=== PATIENT | female | born 1990 | race Caucasian/White ===

== ENCOUNTER → 2016-07-15 | Outpatient (REF) | payer BC | LOC: M LAB REF 16:53 | PROVIDERS: ATTEND Physician Assistant Medical | DX: R87.610 Atypical squamous cells of undetermined significance on cytologic smear of cervix (ASC-US) (principal) ==

== ENCOUNTER 2016-12-26 09:50 | Emergency (ER) | payer BC ==
[~2016-12-26] VITALS: Ht 160 cm; Wt 54.6 kg
[2016-12-26 09:51] VITALS: BP 108/70
[2016-12-26] MEDS ORDERED: BCP (09:58)
[2016-12-26] MEDS ORDERED: FLUORESCEIN OPHTH 1 MG STRIP OD ONE (10:15)
[2016-12-26] MEDS ORDERED: TETRACAINE 0.5% OPHTH SOLN 4ML OD ONE (10:15)
[2016-12-26] MEDS ORDERED: GENT3OPD OD (10:38)
[2016-12-26] MEDS ORDERED: GENTAMICIN 0.3% OPHTH SOL 5 ML BTL OD ONE (10:45)
== END 2016-12-26 10:46 | disposition home or self-care (01) ==
LOC: M ED 09:50
DX: S05.01XA Injury of conjunctiva and corneal abrasion without foreign body, right eye, initial encounter (principal); X58.XXXA Exposure to other specified factors, initial encounter; Y92.099 Unspecified place in other non-institutional residence as the place of occurrence of the external cause; Y93.9 Activity, unspecified; Y99.9 Unspecified external cause status; Z79.3 Long term (current) use of hormonal contraceptives; Z88.0 Allergy status to penicillin; Z88.8 Allergy status to other drugs, medicaments and biological substances

== ENCOUNTER 2017-03-06 01:22 | Emergency (ER) | payer BC ==
[~2017-03-06] VITALS: Ht 162.6 cm; Wt 55.0 kg
[~2017-03-06 01:22] MED LIST: BCP; GENT3OPD OD
[2017-03-06 01:41] VITALS: BP 127/71
[2017-03-06] MEDS ORDERED: IBUP80TA PO (01:46)
[2017-03-06] MEDS ORDERED: ACET30TAB PO (01:46)
== END 2017-03-06 03:43 | disposition left against medical advice (07) ==
LOC: M ED 01:22
DX: K08.89 Other specified disorders of teeth and supporting structures (principal); Z53.21 Procedure and treatment not carried out due to patient leaving prior to being seen by health care provider

== ENCOUNTER → 2017-12-07 | Outpatient (REF) | payer BC ==
[2017-12-09 14:12] LABS: HPV HYBRID CAPTURE II Negative (Negative)
== END ==
LOC: M LAB REF 17:27
DX: Z01.419 Encounter for gynecological examination (general) (routine) without abnormal findings (principal)
CPT/HCPCS: G0123

== ENCOUNTER → 2019-02-23 | Outpatient (REF) | payer OTHER ==
[~2019-02-23] MED LIST changes: +ACET-716 PO; +GENT0.3S36 OD; -GENT3OPD OD; +IBUP80TA PO; +PREN29TA4 PO
[2019-02-23 16:48] LABS: HEMOGLOBIN 13.4 g/dl (12.0-15.5); MEAN CORPUSCULAR HEMOGLOBIN 29.8 pg (27.0-33.0); MEAN CORPUSCULAR HGB CONC 33.5 g/dl (32.0-36.5); MEAN CORPUSCULAR VOLUME 89.1 fl (80.0-96.0); PLATELET COUNT, AUTOMATED 388 10^3/uL (150-450); RED BLOOD COUNT 4.49 10^6/uL (4.00-5.40); WHITE BLOOD COUNT 12.3 10^3/uL (4.0-10.0)
[2019-02-23 19:52] LABS: HCG, SERUM QUANTITATIVE 90663 MIU/ML; RUBELLA IgG QUALITATIVE IMMUNE (IMMUNE)
[2019-02-25 11:42] LABS: HEPATITIS C VIRUS ABY INDEX < 0.0 INDEX (<0.8); HIV 1&2 SCREEN CENTAUR NEGATIVE (NEGATIVE)
== END ==
LOC: M LAB REF 16:29
PROVIDERS: ATTEND Nurse Practitioner Women's Health
DX: Z32.01 Encounter for pregnancy test, result positive (principal)

== ENCOUNTER 2019-04-15 12:46 | Emergency (ER) | payer OTHER ==
[~2019-04-15] VITALS: Ht 165.1 cm; Wt 68.2 kg
[~2019-04-15 12:46] MED LIST changes: -PREN29TA4 PO
[2019-04-15] MEDS ORDERED: PREN29TA4 PO (12:55)
[2019-04-15] MEDS ORDERED: NS 1,000 ML IV ONE (13:00)
[2019-04-15 13:28] LABS: BASO % 0.2 % (0.0-1.0); EOS # 0.1 10^3/uL (0.0-0.5); EOS % 0.9 % (0.0-3.0); HEMATOCRIT 36.5 % (36.0-47.0); HEMOGLOBIN 11.9 g/dl (12.0-15.5); LYMPH # 1.5 10^3/uL (1.5-5.0); LYMPH % 10.3 % (24.0-44.0); MEAN CORPUSCULAR HEMOGLOBIN 29.7 pg (27.0-33.0); MEAN CORPUSCULAR HGB CONC 32.6 g/dl (32.0-36.5); MONO # 0.9 10^3/uL (0.0-0.8); MONO % 5.7 % (0.0-5.0); NEUTROPHILS # 12.2 10^3/uL (1.5-8.5); NEUTROPHILS % 81.8 % (36.0-66.0); PLATELET COUNT, AUTOMATED 414 10^3/uL (150-450); RED BLOOD COUNT 4.01 10^6/uL (4.00-5.40)
[2019-04-15 13:52] LABS: HCG, SERUM QUALITATIVE POSITIVE (NEGATIVE)
[2019-04-15 13:54] LABS: BLOOD UREA NITROGEN 10 MG/DL (7-18); CALCIUM LEVEL 9.4 MG/DL (8.5-10.1); CARBON DIOXIDE LEVEL 23 MEQ/L (21-32); CHLORIDE LEVEL 106 MEQ/L (98-107); CREATININE FOR GFR 0.55 MG/DL (0.55-1.30); GLOMERULAR FILTRATION RATE > 60.0 (>60); GLUCOSE, FASTING 85 MG/DL (70-100); SODIUM LEVEL 137 MEQ/L (136-145); THYROID STIMULATING HORMONE 0.517 uIU/ML (0.358-3.740)
[2019-04-15 17:21] VITALS: BP 113/56
--- NOTE | 2019-04-15 21:30 | ECGEPIP ---
[facility] - ED Test Date: 2019-04-15 Pat Name: MAUREEN MCGOVERN Department: Room: - Gender: Female [employer]als Intelligence Analyst: KG : 1990 Requested By: Megan Hall Order Number: [id number] Reading MD: Megan Hall Measurements Intervals [place] Rate: 84 P: 31 OR: 123 QRS: 46 QRSD: 88 T: 39 QT: 351 QTc: 416 Interpretive Statements SINUS RHYTHM POSSIBLE RIGHT VENTRICULAR CONDUCTION DELAY NO PRIOR Electronically Signed on 04-15-2019 21:30:46 EDT by Megan Hall
== END 2019-04-15 17:53 | disposition home or self-care (01) ==
LOC: M ED 12:46 → EDBD 12:46 → M ED 17:53
DX: O99.89 Other specified diseases and conditions complicating pregnancy, childbirth and the puerperium (principal); R55 Syncope and collapse; Z88.0 Allergy status to penicillin; Z88.1 Allergy status to other antibiotic agents; O99.332 Smoking (tobacco) complicating pregnancy, second trimester; F17.210 Nicotine dependence, cigarettes, uncomplicated; Z3A.00 Weeks of gestation of pregnancy not specified

== ENCOUNTER → 2019-06-23 | Outpatient (CLI) | payer OTHER ==
[~2019-06-23] MED LIST changes: +PREN29TA4 PO
[2019-06-23 17:25] LABS: HEMATOCRIT 38.1 % (36.0-47.0); MEAN CORPUSCULAR HEMOGLOBIN 29.9 pg (27.0-33.0); MEAN CORPUSCULAR HGB CONC 31.5 g/dl (32.0-36.5); MEAN CORPUSCULAR VOLUME 94.8 fl (80.0-96.0); PLATELET COUNT, AUTOMATED 317 10^3/uL (150-450); RED BLOOD COUNT 4.02 10^6/uL (4.00-5.40); WHITE BLOOD COUNT 17.1 10^3/uL (4.0-10.0)
== END ==
LOC: M LAB 14:49
PROVIDERS: ATTEND Nurse Practitioner Women's Health
DX: Z34.03 Encounter for supervision of normal first pregnancy, third trimester (principal); Z3A.00 Weeks of gestation of pregnancy not specified

== ENCOUNTER → 2019-07-12 | Outpatient (REF) | payer OTHER | LOC: M LAB REF 16:32 | PROVIDERS: ATTEND Obstetrics & Gynecology | DX: Z34.02 Encounter for supervision of normal first pregnancy, second trimester (principal) ==

== ENCOUNTER → 2019-08-11 | Outpatient (REF) | payer OTHER | LOC: M LAB REF 12:33 | PROVIDERS: ATTEND Obstetrics & Gynecology | DX: Z36.85 Encounter for antenatal screening for Streptococcus B (principal) ==

== ENCOUNTER 2019-09-14 07:02 | Inpatient (IN) | payer OTHER ==
[~2019-09-14] VITALS: Ht 165.1 cm; Wt 83.2 kg
[2019-09-14] VITALS (30 sets, daily range): BP systolic 97–142; BP diastolic 53–86
[2019-09-14] MEDS ORDERED: ANTA550C PO (07:21)
[2019-09-14] MEDS ORDERED: LACTATED RINGER'S 1000 ML IV STA (07:29)
[2019-09-14] MEDS ORDERED: CLINDAMYCIN 900 MG/50 ML PREMIX BAG As Ordered ONE (08:26)
[2019-09-14] MEDS: CLINDAMYCIN 900 MG in IV 1 EA IV SCH ×2 (08:34→16:40)
[2019-09-14 08:49] LABS: HEMATOCRIT 39.8 % (36.0-47.0); HEMOGLOBIN 13.3 g/dl (12.0-15.5); MEAN CORPUSCULAR HEMOGLOBIN 30.3 pg (27.0-33.0); MEAN CORPUSCULAR HGB CONC 33.4 g/dl (32.0-36.5); MEAN CORPUSCULAR VOLUME 90.7 fl (80.0-96.0); PLATELET COUNT, AUTOMATED 244 10^3/uL (150-450); RED BLOOD COUNT 4.39 10^6/uL (4.00-5.40); WHITE BLOOD COUNT 22.1 10^3/uL (4.0-10.0)
[2019-09-14] MEDS ORDERED: FENTANYL 2MCG/ML ROPIVACAINE 0.2% IN 0.9% NACL 100ML IVBAG As Ordered ONE ×2 (08:59→18:38)
[2019-09-14] MEDS: FENTANYL/ROPIVACAINE/NACL BAG 100 ML EPIDURAL SCH ×2 (09:42→18:45)
[2019-09-14] MEDS: LR 1,000 ML IV SCH ×2 (09:52→17:54)
[2019-09-14] MEDS ORDERED: LACTATED RINGER'S 1000 ML IV PRN (10:00)
[2019-09-14] MEDS ORDERED: NALOXONE INJ 0.4 MG/1 ML VIAL (J2310) IV PRN (10:00)
[2019-09-14] MEDS ORDERED: ONDANSETRON 4MG/2ML VIAL (J2405) IV PRN (10:00)
[2019-09-14] MEDS ORDERED: EPIDURAL/PCA KEYS XX PRN (10:00)
[2019-09-14] MEDS ORDERED: EPIDURAL COMMENT XX SCH (10:00)
[2019-09-14] MEDS ORDERED: REFRIGERATOR IV KEYS XX PRN (10:00)
[2019-09-14] MEDS ORDERED: ePHEDrine SULFATE 25 MG/5 ML(5MG/ML) SYRINGE IV PRN (10:00)
[2019-09-14] MEDS ORDERED: diphenhydrAMINE INJ 50MG/ML VIAL (J1200) IV PRN (10:00)
[2019-09-14] MEDS ORDERED: miSOPROStol 50 MCG 1/2 TAB (S0191) As Ordered ONE (14:51)
[2019-09-14] MEDS ORDERED: miSOPROStol 50 MCG 1/2 TAB (S0191) PO ONE (15:00)
[2019-09-14] MEDS ORDERED: ACETAMINOPHEN TAB 650MG DOSE (2X325MG) PO ONE (18:00)
[2019-09-14] MEDS ORDERED: OXYTOCIN DRIP 30 UNITS in IV 1 EA IV SCH (20:00)
[2019-09-15 01:05] LABS: CORD GAS ABE V -7.9; CORD GAS HCO3 V 18.8 MEQ/L; CORD GAS O2 SAT V 52.5 %; CORD GAS PCO2 V 42.6 mmHg; CORD GAS PH V 7.263 UNITS; CORD GAS SBC V 17.1 MEQ/L; CORD GAS TCO2 V 20.1 MEQ/L
[2019-09-15] MEDS ORDERED: OXYTOCIN DRIP 30 UNITS in IV 1 EA IV SCH (01:08)
[2019-09-15 01:12] LABS: CORD GAS ABE A -9.9; CORD GAS HCO3 A 19.6 MEQ/L; CORD GAS O2 SAT A 47.4 %; CORD GAS PCO2 A 56.2 mmHg; CORD GAS PH A 7.161 UNITS; CORD GAS PO2 A 23.2 mmHg; CORD GAS SBC A 15.7 MEQ/L; CORD GAS TCO2 A 21.4 MEQ/L
[2019-09-15] MEDS ORDERED: ACETAMINOPHEN 500 MG TAB PO PRN (01:15)
[2019-09-15] MEDS ORDERED: MEASLES,MUMPS,RUBELLA VACCINE INJ (MMR-II) (90707) SC SCH (01:15)
[2019-09-15] MEDS ORDERED: ACETAMINOPHEN TAB 650MG DOSE (2X325MG) PO PRN (01:15)
[2019-09-15] MEDS ORDERED: METHYLERGONOVINE MALEATE 0.2 MG TAB PO PRN (01:15)
[2019-09-15] MEDS ORDERED: RHOGAM 300 MCG (1500 IU) INJ (J2790) IM SCH (01:15)
[2019-09-15] MEDS ORDERED: DIBUCAINE 1% OINTMENT 30GM TOP PRN (01:15)
[2019-09-15] MEDS ORDERED: IBUPROFEN 600 MG TAB PO PRN (01:15)
[2019-09-15] MEDS ORDERED: DOCUSATE SODIUM 100 MG CAP PO PRN (01:15)
[2019-09-15] MEDS ORDERED: ANUSOL HC CREAM 30GM TOP PRN (01:15)
[2019-09-15] MEDS: IBUPROFEN 800 MG TAB PO PRN ×3 (02:19→19:57)
[2019-09-15 06:04] VITALS: BP 126/69
--- NOTE | 2019-09-15 07:27 | HPE ---
DATE OF ADMISSION: 09/14/2019 Chelsie is a 29-year-old female 1, para 0 with an estimated date of confinement (EDC) of 09/11/2019, estimated gestational age (EGA) 40-2/7 weeks gestation, who presented to labor and delivery with complaint of contractions. Upon evaluation in labor and delivery she was found to be in early labor. At this point a decision was made for admission. Her record was reviewed, which was essentially unremarkable. She initiated care in her first trimester. Her blood type is AB negative. Rubella immune. Hepatitis negative. HIV negative. GC and chlamydia negative. 1-hour sugar testing was within normal limits. Her Group B Streptococcus (GBS) is positive. PAST MEDICAL HISTORY: Denies. PAST SURGICAL HISTORY: Excision of keloid scar of the right the ear. SOCIAL HISTORY: She denies any alcohol, drug or cigarette smoking. REVIEW OF SYSTEMS: Unremarkable. MEDICATIONS: - vitamin ALLERGIES: 1. AMOXICILLIN. 2. CEFTIN. PHYSICAL EXAMINATION: Obese female in no acute distress. ABDOMEN: Soft, nontender, nondistended. EXTREMITIES: No clubbing, cyanosis or edema. VAGINAL EXAM: 2-3 cm dilated, 70% effaced, fetus at -3 station in vertex position. Tracing reviewed category 1 tracing with contractions every 3-5 minutes. ASSESSMENT: 1. Intrauterine at 40-2/7 weeks gestation in early labor. 2. GBS positive. PLAN: Admit to labor and delivery. Routine labs sent. Pain management discussed. The patient opts for an epidural. Will continue to monitor. Anticipate delivery.
--- NOTE | 2019-09-15 08:18 | DN ---
DATE OF DELIVERY: 09/15/2019 DELIVERY NOTE: Chelsie is a 29-year-old female, 1, para 0, who is admitted at 40-2/7 weeks gestation in early labor. She had one dose of Cytotec, followed by Pitocin with artificial rupture of membranes. She then progressed to fully dilated with terminal mec delivered a live female infant in left occiput anterior position. 7/9. weight 6 pounds 6 ounces. Placenta accreta noted, which was removed manually. Good hemostasis noted. A small right anterior vaginal wall laceration noted, which did not need any suture repair. Her estimated blood loss was 300 mL. Both mother and baby in stable condition.
[2019-09-15] MEDS: PRENATAL VITAMINS CHEWABLE TABLET PO SCH (11:09)
[2019-09-15 18:00] VITALS: BP 111/63
[2019-09-16 06:00] VITALS: BP 118/73
[2019-09-16] MEDS: PRENATAL VITAMINS CHEWABLE TABLET PO SCH (09:12)
[2019-09-16] MEDS: IBUPROFEN 800 MG TAB PO PRN (09:12)
== END 2019-09-16 13:10 | disposition home or self-care (01) | DRG 541 ==
LOC: M LDO 07:02 → M LDI 07:28 → M OBS 09-15 03:36
PROVIDERS: ADMIT Obstetrics & Gynecology; ATTEND Obstetrics & Gynecology
PROC: 10E0XZZ Delivery of Products of Conception, External Approach (ICD-10-PCS; principal; 2019-09-15)
PROC: 10D17Z9 Manual Extraction of Products of Conception, Retained, Via Natural or Artificial Opening (ICD-10-PCS; 2019-09-15)
PROC: 109 Obstetrics, Pregnancy, Drainage (ICD-10-PCS; 2019-09-15)
DX: O48.0 Post-term pregnancy (principal); O99.824 Streptococcus B carrier state complicating childbirth; Z37.0 Single live birth; Z3A.40 40 weeks gestation of pregnancy; Z88.8 Allergy status to other drugs, medicaments and biological substances; O70.0 First degree perineal laceration during delivery; O43.213 Placenta accreta, third trimester

== ENCOUNTER → 2022-05-01 | Outpatient (REF) | payer OTHER ==
[~2022-05-01] MED LIST changes: +ANTA550C PO
[2022-05-01 17:17] LABS: HEMATOCRIT 36.5 % (36.0-47.0); HEMOGLOBIN 11.7 g/dl (12.0-15.5); MEAN CORPUSCULAR HEMOGLOBIN 28.8 pg (27.0-33.0); MEAN CORPUSCULAR HGB CONC 32.1 g/dl (32.0-36.5); MEAN CORPUSCULAR VOLUME 89.9 fl (80.0-96.0); PLATELET COUNT, AUTOMATED 363 10^3/uL (150-450); RED BLOOD COUNT 4.06 10^6/uL (4.00-5.40)
[2022-05-01 21:28] LABS: HCG, SERUM QUANTITATIVE 23071 MIU/ML; HEPATITIS B SURFACE ANTIGEN NEGATIVE (NEGATIVE)
[2022-05-02 10:47] LABS: WHITE BLOOD COUNT 11.8 10^3/uL (4.0-10.0)
[2022-05-02 12:29] LABS: HEPATITIS C VIRUS ABY INDEX 0.1 INDEX (<0.8)
[2022-05-02 12:30] LABS: HIV 1&2 SCREEN CENTAUR NEGATIVE (NEGATIVE)
== END ==
LOC: M LAB REF 16:18
PROVIDERS: ATTEND Obstetrics & Gynecology
DX: Z32.01 Encounter for pregnancy test, result positive (principal)

== ENCOUNTER → 2022-05-22 | Outpatient (REF) | payer OTHER | LOC: M LAB REF 16:20 | PROVIDERS: ATTEND Advanced Practice Midwife | DX: Z34.82 Encounter for supervision of other normal pregnancy, second trimester (principal) ==

== ENCOUNTER → 2022-06-30 | Outpatient (CLI) | payer OTHER ==
[2022-06-30 11:39] LABS: HEMATOCRIT 36.6 % (36.0-47.0); HEMOGLOBIN 11.7 g/dl (12.0-15.5); MEAN CORPUSCULAR VOLUME 90.8 fl (80.0-96.0); PLATELET COUNT, AUTOMATED 325 10^3/uL (150-450); RED BLOOD COUNT 4.03 10^6/uL (4.00-5.40); WHITE BLOOD COUNT 14.1 10^3/uL (4.0-10.0)
== END ==
LOC: M LAB 09:53
PROVIDERS: ATTEND Advanced Practice Midwife
DX: Z34.82 Encounter for supervision of other normal pregnancy, second trimester (principal); Z3A.00 Weeks of gestation of pregnancy not specified

== ENCOUNTER → 2022-07-07 | Outpatient (CLI) | payer OTHER | LOC: M WHC 11:51 | PROVIDERS: ATTEND Obstetrics & Gynecology | DX: O44.00 Complete placenta previa NOS or without hemorrhage, unspecified trimester (principal); Z3A.31 31 weeks gestation of pregnancy ==

== ENCOUNTER → 2022-07-09 | Outpatient (CLI) | payer OTHER | LOC: M LAB 07:31 | PROVIDERS: ATTEND Obstetrics & Gynecology | DX: O99.810 Abnormal glucose complicating pregnancy (principal) ==

== ENCOUNTER → 2022-08-04 | Outpatient (CLI) | payer OTHER | LOC: M WHC 14:17 | PROVIDERS: ATTEND Obstetrics & Gynecology | DX: O44.40 Low lying placenta NOS or without hemorrhage, unspecified trimester (principal); Z3A.35 35 weeks gestation of pregnancy ==

== ENCOUNTER → 2022-08-12 | Outpatient (REF) | payer OTHER | LOC: M LAB REF 16:58 | PROVIDERS: ATTEND Obstetrics & Gynecology | DX: Z34.83 Encounter for supervision of other normal pregnancy, third trimester (principal) ==

== ENCOUNTER 2022-09-02 04:15 | Inpatient (IN) | payer OTHER ==
[2022-09-02] VITALS (38 sets, daily range): BP systolic 94–165; BP diastolic 54–92
[~2022-09-02] VITALS: Ht 165.1 cm; Wt 91.9 kg
[2022-09-02] MEDS ORDERED: LACTATED RINGER'S 1000 ML IV STA (05:54)
[2022-09-02] MEDS ORDERED: OXYTOCIN DRIP 30 UNITS in IV 1 EA IV PRN (05:55)
[2022-09-02] MEDS ORDERED: LIDOCAINE 1% MDV 20ML VIAL INFIL PRN (05:55)
[2022-09-02] MEDS ORDERED: CARBOPROST TROMETHAMINE 250 MCG/ML AMP IM PRN (05:55)
[2022-09-02] MEDS ORDERED: TRANEXAMIC ACID INJection 1,000 MG in NS 100 ML IV PRN (05:55)
[2022-09-02] MEDS ORDERED: OXYTOCIN INJ 10UNITS/ML 1ML VIAL IM PRN (05:55)
[2022-09-02] MEDS ORDERED: METHYLERGONOVINE MALEATE 0.2MG/ML 1ML VIAL IM PRN (05:55)
[2022-09-02 06:26] LABS: HEMATOCRIT 38.6 % (36.0-47.0); HEMOGLOBIN 12.2 g/dl (12.0-15.5); MEAN CORPUSCULAR HEMOGLOBIN 27.2 pg (27.0-33.0); MEAN CORPUSCULAR HGB CONC 31.6 g/dl (32.0-36.5); MEAN CORPUSCULAR VOLUME 86.2 fl (80.0-96.0); PLATELET COUNT, AUTOMATED 343 10^3/uL (150-450); RED BLOOD COUNT 4.48 10^6/uL (4.00-5.40)
[2022-09-02] MEDS ORDERED: GLYB2.5T7 PO (08:21)
[2022-09-02] MEDS ORDERED: OXYTOCIN DRIP 30 UNITS in IV 1 EA IV SCH (12:20)
[2022-09-02] MEDS ORDERED: ePHEDrine SULFATE 25 MG/5 ML(5MG/ML) SYRINGE IVP PRN (17:55)
[2022-09-02] MEDS ORDERED: diphenhydrAMINE 50MG/ML VIAL IV PRN (17:55)
[2022-09-02] MEDS ORDERED: ONDANSETRON 4MG 2ML VIAL IV PRN (17:55)
[2022-09-02] MEDS ORDERED: NALOXONE INJ 0.4MG/1ML VIAL IV PRN (17:55)
[2022-09-02] MEDS ORDERED: FENTANYL/ROPIVACAINE/NACL BAG 100 ML EPIDURAL SCH (17:55)
[2022-09-02] MEDS ORDERED: EPIDURAL/PCA KEYS XX PRN (17:55)
[2022-09-02] MEDS ORDERED: LR 500 ML IV PRN (17:55)
[2022-09-02] MEDS ORDERED: METHYLERGONOVINE MALEATE 0.2 MG TAB PO PRN (21:00)
[2022-09-02] MEDS ORDERED: DOCUSATE SODIUM 100MG CAPSULE PO PRN (21:00)
[2022-09-02] MEDS ORDERED: DIBUCAINE 1% OINTMENT 30GM TOP PRN (21:00)
[2022-09-02] MEDS ORDERED: RHOGAM 300MCG (1500IU) INJ IM SCH (21:00)
[2022-09-02] MEDS ORDERED: ACETAMINOPHEN 500 MG TAB PO PRN (21:00)
[2022-09-03] MEDS ORDERED: METHYLERGONOVINE MALEATE 0.2MG/ML 1ML VIAL ONE (01:57)
[2022-09-03 06:59] LABS: HEMATOCRIT 31.2 % (36.0-47.0); MEAN CORPUSCULAR HEMOGLOBIN 28.5 pg (27.0-33.0); MEAN CORPUSCULAR HGB CONC 32.7 g/dl (32.0-36.5); MEAN CORPUSCULAR VOLUME 87.2 fl (80.0-96.0); PLATELET COUNT, AUTOMATED 283 10^3/uL (150-450); RED BLOOD COUNT 3.58 10^6/uL (4.00-5.40); WHITE BLOOD COUNT 18.5 10^3/uL (4.0-10.0)
[2022-09-03 07:00] LABS: HEMOGLOBIN 10.2 g/dl (12.0-15.5)
[2022-09-03] MEDS: PRENATAL VITAMINS CHEWABLE TABLET PO SCH (07:59)
[2022-09-03] MEDS: IBUPROFEN 600MG TAB PO PRN ×2 (11:19→18:24)
[2022-09-03 18:00] VITALS: BP 113/57
[2022-09-04 05:38] VITALS: BP 100/59
[2022-09-04] MEDS: PRENATAL VITAMINS CHEWABLE TABLET PO SCH (08:49)
[2022-09-04] MEDS: IBUPROFEN 600MG TAB PO PRN (08:50)
[2022-09-04] MEDS ORDERED: MEASLES,MUMPS,RUBELLA VACCINE INJ (MMR-II) SC.IMMUN ONE (09:00)
[2022-09-04] MEDS ORDERED: BOOSTRIX/ADACEL VACCINE (DIPHTH/PERTUSS/ACELL/TETANUS) 0.5ML SYR IM.IMMUN ONE (09:00)
[2022-09-04] MEDS ORDERED: INFLUENZA QUADRIVALENT PF VACCINE 0.5ML SYRINGE IM.IMMUN ONE (09:00)
[2022-09-04] MEDS ORDERED: ACET-683 PO (12:05)
[2022-09-04] MEDS ORDERED: IBUP-1022 PO (12:05)
== END 2022-09-04 14:10 | disposition home or self-care (01) | DRG 560 ==
LOC: M LDO 04:15 → M LDI 05:52 → M OBS 22:20
PROVIDERS: ADMIT Advanced Practice Midwife; ATTEND Advanced Practice Midwife
PROC: 10E0XZZ Delivery of Products of Conception, External Approach (ICD-10-PCS; principal; 2022-09-02)
DX: O69.1XX0 Labor and delivery complicated by cord around neck, with compression, not applicable or unspecified (principal); Z37.0 Single live birth; Z3A.39 39 weeks gestation of pregnancy; O72.1 Other immediate postpartum hemorrhage

== ENCOUNTER 2023-08-08 18:31 | Day surgery (SDC) | payer OTHER ==
[~2023-08-08] VITALS: Ht 165.1 cm; Wt 61.4 kg
[~2023-08-08 18:31] MED LIST changes: +ACET-683 PO; +GLYB2.5T7 PO; +IBUP-1022 PO
[2023-08-08 20:38] LABS: BASO % 0.2 % (0.0-1.0); EOS # 0.2 10^3/uL (0.0-0.5); EOS % 1.2 % (0.0-3.0); HEMATOCRIT 38.7 % (36.0-47.0); HEMOGLOBIN 12.4 g/dl (12.0-15.5); LYMPH # 2.4 10^3/uL (1.5-5.0); LYMPH % 13.6 % (24.0-44.0); MEAN CORPUSCULAR HEMOGLOBIN 27.9 pg (27.0-33.0); MEAN CORPUSCULAR VOLUME 87.2 fl (80.0-96.0); MONO % 5.6 % (2.0-8.0); NEUTROPHILS # 14.1 10^3/uL (1.5-8.5); NEUTROPHILS % 79.1 % (36.0-66.0); PLATELET COUNT, AUTOMATED 442 10^3/uL (150-450); RED BLOOD COUNT 4.44 10^6/uL (4.00-5.40); WHITE BLOOD COUNT 17.8 10^3/uL (4.0-10.0)
[2023-08-08 20:54] LABS: LIPASE 26 U/L (12-53)
[2023-08-08 20:56] LABS: HCG, SERUM QUALITATIVE POSITIVE (NEGATIVE)
[2023-08-08 20:57] LABS: ALBUMIN 3.5 G/DL (3.2-5.2); ALKALINE PHOSPHATASE 127 U/L (46-116); ALT/SGPT 13 U/L (7.0-40); AST/SGOT 8 U/L (<34); BILIRUBIN,DIRECT 0.2 MG/DL (<0.4); BILIRUBIN,TOTAL 0.4 MG/DL (0.3-1.2); BLOOD UREA NITROGEN 11 MG/DL (9-23); CALCIUM LEVEL 8.7 MG/DL (8.5-10.1); CARBON DIOXIDE LEVEL 26 MMOL/L (20-31); CHLORIDE LEVEL 108 MMOL/L (98-107); CREATININE FOR GFR 0.61 MG/DL (0.55-1.30); GLOMERULAR FILTRATION RATE > 60.0 (>60); GLUCOSE, FASTING 101 MG/DL (60-100); SODIUM LEVEL 139 MMOL/L (136-145); TOTAL PROTEIN 6.6 G/DL (5.7-8.2)
[2023-08-08 21:36] LABS: HCG, SERUM QUANTITATIVE 32.1 MIU/ML (<4.2)
[2023-08-08] MEDS: MORPHINE 4 MG/ML 1ML VIAL IV PRN (22:00)
[2023-08-08] MEDS: ONDANSETRON 4MG 2ML VIAL IV ONE (22:00)
[2023-08-08] MEDS: NS 1,000 ML IV ONE (22:01)
[2023-08-08 22:46] LABS: RSV AMPLIFICATION NEGATIVE (NEGATIVE)
[2023-08-09] VITALS (9 sets, daily range): BP systolic 99–114; BP diastolic 51–68; TEMP 96.8–97.8; O2SAT 92–100
[2023-08-09] MEDS ORDERED: HOME MED LIST COMPLETE! XX SCH (00:10)
[2023-08-09] MEDS ORDERED: fentaNYL 100 MCG/2 ML INJECTION As Ordered ONE (01:22)
[2023-08-09] MEDS ORDERED: MIDAZOLAM INJ 2MG/2ML VIAL As Ordered ONE (01:22)
[2023-08-09] MEDS ORDERED: propofoL 200 MG/20 ML VIAL As Ordered ONE (01:23)
[2023-08-09] MEDS ORDERED: LIDOCAINE 2% 100MG/5ML SDV (FOR ANES.) As Ordered ONE (01:23)
[2023-08-09] MEDS ORDERED: PHENYLephrine 500MCG 5ML (100MCG/ML) SYRINGE As Ordered ONE (01:48)
[2023-08-09] MEDS ORDERED: ONDANSETRON 4MG 2ML VIAL As Ordered ONE (02:17)
[2023-08-09] MEDS ORDERED: KETOROLAC 60MG 2ML VIAL As Ordered ONE (02:17)
[2023-08-09] MEDS ORDERED: oxyCODONE 5MG TAB PO PRN (02:30)
[2023-08-09] MEDS ORDERED: HYDROMORPHONE HCL 0.5 MG/ 0.5 ML SYRINGE IV PRN (02:30)
[2023-08-09] MEDS ORDERED: PROMETHAZINE 25MG/ML 1ML VIAL IV PRN (02:30)
[2023-08-09] MEDS ORDERED: fentaNYL 100 MCG/2 ML INJECTION IV PRN (02:30)
[2023-08-09] MEDS ORDERED: ONDANSETRON 4MG 2ML VIAL IV PRN (02:30)
[2023-08-09] MEDS: LR 1,000 ML IV SCH ×2 (02:30→04:00)
[2023-08-09] MEDS ORDERED: SUGAMMADEX SODIUM 500 MG/5 ML VIAL (BRIDION) As Ordered ONE (02:39)
[2023-08-09] MEDS: PERCOCET 5MG/325MG TAB PO PRN (07:48)
[2023-08-09] MEDS: IBUPROFEN 800 MG TAB PO SCH (08:32)
== END 2023-08-09 14:20 | disposition home or self-care (01) ==
LOC: M ED 18:31 → M SDC 08-09 00:06 → M PED 08-09 03:35 → M SDC 08-09 14:20
PROVIDERS: ATTEND Obstetrics & Gynecology
DX: O00.102 Left tubal pregnancy without intrauterine pregnancy (principal); Z88.0 Allergy status to penicillin
CPT/HCPCS: 36415; 59151; 76801; 76817; 80048; 80076; 81001; 83690; 84702; 84703; 85025; 85461; 86850; 86900; 86901; 86920; 87631; 88305; 99285; J0665; J1100; J1885; J2250; J2405; J3010

== ENCOUNTER → 2023-09-25 | Outpatient (REF) | payer OTHER | LOC: EEVIPCON 16:40 → M LAB REF 16:40 | PROVIDERS: ATTEND Nurse Practitioner Family | DX: L02.419 Cutaneous abscess of limb, unspecified (principal) ==